=== PATIENT | female | born 2005 | race Asian ===

== ENCOUNTER 2025-04-26 12:09 | Emergency (ER) | payer OTHER, SELFPAY ==
--- OUTSIDE RECORDS SUMMARY | 2025-04-26 11:09 | XMS RPT_ITS ---
Author Name Auto Generated Organization [facility] Care Team Providers Care Shared Services Representative Name Role Phone GLADIS GARZA Attending Unavailable PROBLEMS DATE TYPE CONDITION / CODE ATTENDING STATUS ROHAN RCE 04/26/2025 Active Dizziness / R42(ICD-10) GLADIS GARZA Active [facility] PROCEDURES No Procedure Records Found RESULTS PROGRESS Observed: 04/26/2025 11:29 AM Status: COMPLETED Source: [facility] HNO ID: [id number] Author: GLADIS GARZA APRN.TOOL DESIGN ENGINEER Service: ? Author Type: Nurse Practitioner Type: Progress Notes Filed: 04/26/2025 11:40 Note Text: [facility] Subjective Clementina Brown is a 19 year old female. Patient presents with: Dizziness: Nausea x 4 days HPI 19-year-old female presents urgent care chief complaint dizziness and nausea. Duration of symptoms 4 days. Associated symptoms increased dizziness and nausea. States near syncopal episode multiple times today. Having a hard time walking. Dizziness are pronounced when changing positions. Presents today for evaluation. Past medical history prescription medications allergies reviewed. Review of Systems Constitutional: Negative for chills, diaphoresis, fatigue and fever. HENT: Negative for congestion, drooling, ear discharge, ear pain, rhinorrhea, sinus pressure, sinus pain, sneezing, sore throat and trouble swallowing. Eyes: Negative for pain, discharge, redness, itching and visual disturbance. Respiratory: Negative for cough, chest tightness, shortness of breath and wheezing. Cardiovascular: Negative for chest pain. Gastrointestinal: Positive for nausea and vomiting. Negative for abdominal distention, abdominal pain, blood in stool, constipation and diarrhea. Genitourinary: Negative for difficulty urinating and dysuria. Musculoskeletal: Negative for arthralgias, joint swelling, neck pain and neck stiffness. Skin: Negative for rash. Neurological: Positive for dizziness. Negative for syncope, weakness, numbness and headaches. Objective BP 114/78 Pulse 80 Temp 37 ?C (98.6 ?F) Resp 18 Wt 52 kg (114 lb 10.2 oz) LMP 04/06/2025 (Exact Date) SpO2 98% Physical Exam Constitutional: Appearance: Normal appearance. HENT: Head: Normocephalic. Jaw: No trismus, tenderness, swelling or pain on movement. Nose: No congestion. Mouth/Throat: Mouth: Mucous membranes are moist. Pharynx: Oropharynx is clear. Uvula midline. No oropharyngeal exudate or posterior oropharyngeal erythema. Eyes: Conjunctiva/sclera: Conjunctivae normal. Cardiovascular: Rate and Rhythm: Normal rate. Pulmonary: Effort: Pulmonary effort is normal. Breath sounds: Normal breath sounds. No wheezing, rhonchi or rales. Abdominal: Palpations: Abdomen is soft. Tenderness: There is no abdominal tenderness. There is no guarding or rebound. Musculoskeletal: General: Normal range of motion. Cervical back: Normal range of motion and neck supple. No edema, erythema or rigidity. No pain with movement. Normal range of motion. Lymphadenopathy: Cervical: No cervical adenopathy. Skin: General: Skin is warm. Findings: No rash. Neurological: General: No focal deficit present. Mental Status: She is alert and oriented to person, place, and time. Mental status is at baseline. Coordination: Coordination normal. Gait: Gait normal. {ASSESSMENT/PLAN: 1. Dizziness - ICD9: 780.4, ICD10: R42 Diagnosed with dizziness. If symptoms worsening. Difficulty with ambulation. Referred to ED. Gladis Garza APRN.TOOL DESIGN ENGINEER MDM Procedures CNOV Observed: 04/26/2025 11:15 AM Status: COMPLETED Source: [facility] Office Visit ([place]) CLEMENTINA BROWN ([id number]) 3 F Date Time Provider Department 04/26/25 11:15 AM GLADIS GARZA During your visit today, we recorded the following information about you: Temperature Pulse Respiration Blood pressure 98.6 degrees 80/minute 18/minute 114/78 Weight Last Period 52 kg 04/06/25 Gladis Garza APRN.TOOL DESIGN ENGINEER 04/26/2025 11:40 AM Signed [facility] Subjective Clementina Brown is a 19 year old female. Patient presents with: Dizziness: Nausea x 4 days HPI 19-year-old female presents urgent care chief complaint dizziness and nausea. Duration of symptoms 4 days. Associated symptoms increased dizziness and nausea. States near syncopal episode multiple times today. Having a hard time walking. Dizziness are pronounced when changing positions. Presents today for evaluation. Past medical history prescription medications allergies reviewed. Review of Systems Constitutional: Negative for chills, diaphoresis, fatigue and fever. HENT: Negative for congestion, drooling, ear discharge, ear pain, rhinorrhea, sinus pressure, sinus pain, sneezing, sore throat and trouble swallowing. Eyes: Negative for pain, discharge, redness, itching and visual disturbance. Respiratory: Negative for cough, chest tightness, shortness of breath and wheezing. Cardiovascular: Negative for chest pain. Gastrointestinal: Positive for nausea and vomiting. Negative for abdominal distention, abdominal pain, blood in stool, constipation and diarrhea. Genitourinary: Negative for difficulty urinating and dysuria. Musculoskeletal: Negative for arthralgias, joint swelling, neck pain and neck stiffness. Skin: Negative for rash. Neurological: Positive for dizziness. Negative for syncope, weakness, numbness and headaches. Objective BP 114/78 Pulse 80 Temp 37 ?C (98.6 ?F) Resp 18 Wt 52 kg (114 lb 10.2 oz) LMP 04/06/2025 (Exact Date) SpO2 98% Physical Exam Constitutional: Appearance: Normal appearance. HENT: Head: Normocephalic. Jaw: No trismus, tenderness, swelling or pain on movement. Nose: No congestion. Mouth/Throat: Mouth: Mucous membranes are moist. Pharynx: Oropharynx is clear. Uvula midline. No oropharyngeal exudate or posterior oropharyngeal erythema. Eyes: Conjunctiva/sclera: Conjunctivae normal. Cardiovascular: Rate and Rhythm: Normal rate. Pulmonary: Effort: Pulmonary effort is normal. Breath sounds: Normal breath sounds. No wheezing, rhonchi or rales. Abdominal: Palpations: Abdomen is soft. Tenderness: There is no abdominal tenderness. There is no guarding or rebound. Musculoskeletal: General: Normal range of motion. Cervical back: Normal range of motion and neck supple. No edema, erythema or rigidity. No pain with movement. Normal range of motion. Lymphadenopathy: Cervical: No cervical adenopathy. Skin: General: Skin is warm. Findings: No rash. Neurological: General: No focal deficit present. Mental Status: She is alert and oriented to person, place, and time. Mental status is at baseline. Coordination: Coordination normal. Gait: Gait normal. {ASSESSMENT/PLAN: 1. Dizziness - ICD9: 780.4, ICD10: R42 Diagnosed with dizziness. If symptoms worsening. Difficulty with ambulation. Referred to ED. Gladis Garza APRN.[facility] Procedures Allergies As of Date: 04/26/2025 (No Known Allergies) Date Reviewed: 04/26/2025 Reviewed by: Kemi Ramirez LPN - Fully Assessed Reason for Visit: Dizziness [36] Cmt: Nausea x 4 days Primary Visit Diagnosis:Dizziness [R42] Problem List As Of Date: 04/26/2025 (None) Level of Service: OFFICE/OUTPATIENT [facility] 15 MINUTES [[id number]] Encounter Status:Closed by GLADIS GARZA on 04/26/25 ALLERGIES DATE TYPE / CODE NAME / CODE REACTION SEVERITY SOURCE Drug Class/[id number](SNO MED CT) NO KNOWN ALLERGIES [facility] ENCOUNTERS ADMIT/DISCHARGE ACCOUNT NUMBER ADMITTING ENCOUNTER CLASS LOC ATION SOURCE 04/26/2025/ 5 [id number] [address] [facility] HospitalBuild ing:[facility] PAYERS ENCOUNTER GUARANTOR PAYER SUBSCRIBER SOURCE 04/26/2025 Primary Insuranc e:[facility] [employer] MEDICAID [facility]: [id number] Date:[id number] Name:Elmo CLEMENTINA Gilliam DAGMAROB: [id number] [place] [address] [facility]
[2025-04-26 12:11] VITALS: BP 107/80; PULSE 88; RESP 16; TEMP 36.5; O2SAT 100; BMI 19.4
--- NOTE | 2025-04-26 13:23 | EDS_ITS ---
HPI History of Present Illness Chief Complaint: Dizziness Detail of Chief Complaint: Dizziness Informant: patient Narrative Narrative: Patient presents with dizziness that started 4 days ago. She describes it more with first waking up and standing. Seems to be positional especially when standing. Denies recent illness. Denies falls or head injuries. She describes vertiginous symptoms as well. Denies nausea or vomiting. She has no medical history. Last menstrual period was April 06. She denies urinary symptoms. She has had no vomiting or diarrhea. PFSH PFSH Medical History no medical history Home Medications ?Medication ?Instructions ?Recorded ?Last Taken ?Type meclizine 25 mg tablet 25 mg PO TID PRN dizziness # 20 tabs 04/26/25 Unknown Rx Allergy/AdvReac Type Severity Reaction Status Date / Time No Known Allergies Allergy Verified 04/26/25 12:14 Family History no significant family his Surgical History no surgical history Social History Smoking Status: Never smoker ROS ROS ED Review of Systems ROS Unobtainable: other Constitutional Constitutional ED: Reports lethargy; Denies chills, fever(s), sweats or weight loss Eyes Eyes: Denies blurry vision, change in vision or diplopia ENT ENT ED: Denies rhinorrhea or sore throat Cardiovascular Cardiovascular: Denies chest pain, orthopnea or racing heartbeat Respiratory/Chest Respiratory/Chest: Denies cough, dyspnea, dyspnea on exertion, orthopnea or sput um Gastrointestinal Gastrointestinal: Denies abdominal pain, diarrhea, nausea or vomiting Genitourinary Genitourinary ED: Denies dysuria, hematuria or urinary frequency Musculoskeletal Musculoskeletal: Denies arthralgias, back pain, myalgias or neck pain Integumentary Denies abscess, Abrasions or rash Neurologic Neurologic: Reports other Details: Dizziness ; Denies headache(s) or weakness Psychiatric Psychiatric: Denies anxiety, depression or suicidal thoughts Endocrine Endocrinology: Denies polydipsia, polyphagia or polyuria Hematologic/Lymphatic Hematologic/Lymphatic: Denies easy bleeding, easy bruising or lymphadenopathy Allergic/Immunologic Allergic/Immunologic ED: Denies mouth swelling, tongue swelling or urticaria EXAM Physical Exam Const Vital Signs: 04/26/25 12:11 Temperature 97.7 F L Temperature Source Oral Pulse Rate 88 Respiratory Rate 16 Blood Pressure 107/80 Blood Pressure Mean 89 Pulse Ox 100 Oxygen Delivery Method Room Air Positive well nourished and well developed General Appearance ED: well developed and NAD HEENT Reports TM's clear and moist mucous membranes normocephalic and atraumatic; Negative for trauma or tenderness Tympanic Membrane ED: Yes TM's clear Eyes PERRL and EOMs intact bilaterally General Eye ED: Negative for pale conjunctiva or scleral icterus Neck no lymphadenopathy, supple and no JVD General: Negative for tenderness Chest Wall inspection of chest normal and palpation of chest normal Chest: Negative for tenderness Resp normal respiratory effort and clear to auscultation bilaterally Effort and Inspection: Negative for respiratory distress or pain with movement Auscultation: Negative for rhonchi, wheezes or diminished lung sounds Cardio regular rate, regular rhythm, S1 normal heart sound, S2 normal heart sound and no murmurs Peripheral Pulses: pulses 2+ throughout GI normal to inspection, nondistended, normoactive bowel sounds, soft to palpation, non-tender, non-distended and no masses Back/Spine no CVA tenderness and no thoracic nor lumbar tenderness Extremity normal to inspection General Extremety ED: Negative for edema General Extremity: Negative for edema Neuro oriented x3, CN's II-XII intact bilaterally, no sensory deficits noted and gait normal Neuro Narrative: Hallpike maneuver positive with head turn to the right there was no nystagmus with fast movement of the right. Nystagmus was fatigable. Sensorium / Orientation: awake, alert, oriented to person, oriented to place and oriented to time Motor Exam: strength 5/5 throughout and strength abnormal Psych mental status grossly normal Skin no rashes or lesions noted and no wounds MDM MDM MDM Narrative Medical decision making narrative: Patient presents with horizontal nystagmus that is fatigable. Positive Hallpike. I did do the Ashish maneuver. Will obtain some basic labs and a test. Will order Antivert p.o. patient and stated that she felt that she got better after eating a donut today and thought maybe her sugar was lower made her feel better. Patient CBC with differential was normal. Chemistries unremarkable. hCG was negative. Gave her Antivert 25 mg p.o. She does feel improved. This point she will be discharged to home as I suspect likely benign positional vertigo. Recommended pushing fluids. Will refer to ENT for follow- up if symptoms do not improve. Will write a prescription for Antivert. Lab Data Attestation: I reviewed the patient's lab results. Labs: Laboratory Results - last 24 hr 04/26/25 13:33 WBC 9.8 RBC 4.69 Hgb 14.0 Hct 42.4 MCV 90.4 MCH 29.9 MCHC 33.0 RDW Std Deviation 39.5 RDW Coeff of Rowdy 12.1 Plt Count 297 MPV 9.6 Immature Gran % (Auto) 0.500 Neut % (Auto) 69.3 Lymph % (Auto) 22.3 [place] % (Auto) 7.2 Eos % (Auto) 0.3 Baso % (Auto) 0.4 Absolute Neuts (auto) 6.8 Absolute Lymphs (auto) 2.19 Nucleated RBC % 0 Sodium 137 Potassium 4.3 Chloride 104 Carbon Dioxide 22.6 Anion Gap 11 BUN 5 Creatinine 0.45 L Estim Creat Clear Calc 166.64 Est GFR (MDRD) Non-Af 141 BUN/Creatinine Ratio 10.6 Glucose 96 Calcium 9.2 Serum , Qual NEGATIVE Discharge Plan Triage Chief Complaint: Dizziness ED Provider: Zach Latham Dx/Rx/DC Orders Clinical Impression: Benign paroxysmal positional vertigo Instructions: BPPV Prescriptions: New meclizine 25 mg tablet 25 mg PO TID PRN (Reason: dizziness) Qty: 20 0RF Primary Care Provider: Care Physician,No Primary Referrals: Som Moralez MD [Med Staff - Active Staff, Ear Nose Throat (ENT)] - 3-5 Days Care Physician,No Primary [Primary Care Provider, Medical] Print Language: [place] Disposition Disposition: Home, Self Care
[2025-04-26 13:43] LABS: Hematocrit 42.4 % (37-47); Hemoglobin 14.0 g/dL (12.0-15.0); Immature Granulocytes Count 0.050 X10^3/uL (0.0-0.0); Mean Corp Hgb Conc 33.0 g/dL (32-36); Mean Corpuscular Volume 90.4 fL (81-99); Mean Platelet Vol. 9.6 fl (6.2-12.0); NRBC Flagged by Analyzer 0 % (0-5); Platelet Count 297 K/mm3 (150-450); RBC Distribution Width CV 12.1 % (11.6-14.6); RBC Distribution Width SD 39.5 fl (35.1-43.9); Red Blood Count 4.69 M/mm3 (4.2-5.4); White Blood Count 9.8 K/mm3 (4.4-11.0)
[2025-04-26 13:56] LABS: Internal QC Validated? YES +Cl - CLEAR BKGD; Pregnancy, Serum, hCG Quali. NEGATIVE Negative; Record Kit Lot#, Serum Preg. 980607
[2025-04-26 14:11] VITALS: BP 98/61; PULSE 78; RESP 16; O2SAT 100
[2025-04-26 14:29] LABS: Anion Gap 11 (5-15); BUN 5 mg/dL (4-19); BUN/Creat Ratio 10.6 RATIO (10-20); Calcium,Total 9.2 mg/dL (7.6-11.0); Carbon Dioxide 22.6 mmol/L (21.0-32.0); Chloride 104 mmol/L (98-108); Estimated Creatinine Clearance 166.64 ml/min (50-250); Glucose 96 mg/dL (70-99); Potassium 4.3 mmol/L (3.3-5.1)
[2025-04-26 14:50] VITALS: BP 98/61; PULSE 78; RESP 16; TEMP 36.5; O2SAT 100
== END 2025-04-26 14:53 | disposition home or self-care (01) ==
PROVIDERS: Emergency Provider Emergency Medicine; Visit Provider Emergency Medicine
DX: H81.10 Benign paroxysmal vertigo, unspecified ear (principal)
CPT/HCPCS: 80048; 84703; 85025; 99283; A4216